=== PATIENT | male | born 1985 | race Caucasian/White ===

== ENCOUNTER 2021-06-10 09:31 | Emergency (ER) | payer OTHER ==
[2021-06-10] MEDS ORDERED: CEPHALEXIN500 M1 PO (11:24)
[2021-06-10] MEDS ORDERED: NORCO 325 MG-51 TA1 PO (11:24)
[2021-06-10 11:34] VITALS: BP 140/78
== END 2021-06-10 11:29 | disposition home or self-care (01) ==
LOC: ED 09:31
DX: S62.635A Displaced fracture of distal phalanx of left ring finger, initial encounter for closed fracture (principal); W23.0XXA Caught, crushed, jammed, or pinched between moving objects, initial encounter; Y92.59 Other trade areas as the place of occurrence of the external cause; Y99.0 Civilian activity done for income or pay